=== PATIENT | female | born 1970 | race African-American/Black ===

== ENCOUNTER → 2016-11-28 | Outpatient (CLI) | payer OTHER ==
[~2016-11-28] MED LIST: IOHEXOL 240 MG/ML 50ML VIAL. PO ONE; IOHEXOL 300 MG/ML 100ML VIAL. IV ONE
--- NOTE | 2016-11-28 13:56 | KCIC ---
PROCEDURE CT abdomen pelvis with contrast. HISTORY Abdominal pain, gastric sleeve, bloating, pain with certain foods for a few months, constipation TECHNIQUE After administration of intravenous and oral contrast, CT imaging was performed of the abdomen and pelvis. Multiplanar reconstruction images are submitted. Exposure: One or more of the following individualized dose reduction techniques were utilized for this exam: 1. Automated exposure control. 2. Adjustment of the mA and/or kV according to patient size. 3. Use of iterative reconstruction technique. Contrast: 98 cc Omnipaque 300 COMPARISON None FINDINGS There is no abnormality of the limited visualized lung bases. There is no significant focal abnormality of the liver or spleen. Pancreatic duct is visualized. Gallbladder is present without obvious intraluminal abnormality by CT. There is no adrenal nodularity. Both kidneys enhance without hydronephrosis. There has been gastric sleeve surgery. There is a small sliding hiatal hernia. There is some oral contrast remaining in the visualized distal esophagus. There is small fat containing hernia near the umbilicus on the left, neck 1 centimeter transverse and hernia sac 2.1 cm transverse. Bowel is not significantly dilated. There is retained stool in segments of colon. There is somewhat oblong focus of displacement of the contrast column in a segment of small bowel in the right lower quadrant axial image 57, up to 1.4 cm longitudinal. There is no free air or free fluid. There is mild sigmoid diverticulosis. There has been hysterectomy. There has been posterolateral fusion at L5-S1, also anterior plate and screws at S1 and interbody graft L5-S1. There are some borderline enlarged inguinal lymph nodes bilaterally. IMPRESSION 1. There is retained stool in segments of the colon. There is mild sigmoid diverticulosis. There is oblong focus of displacement of the contrast in the lumen of the small bowel in the right lower quadrant. While polyp difficult to exclude, findings more likely due to ingested material given morphology. 2. There is small ventral fat containing hernia near the umbilicus. 3. There has been gastric sleeve surgery. There is a small sliding hiatal hernia. There is some oral contrast remaining in the distal esophagus. 4. There are some nonspecific borderline enlarged inguinal lymph nodes bilaterally. Electronically signed by: Casper Cooney MD (Nov 28, 2016 13:55:12)
== END | disposition home or self-care (01) ==
LOC: KCIC CT 09:49
PROVIDERS: ATTEND Pediatrics
DX: R10.9 Unspecified abdominal pain (principal); K57.30 Diverticulosis of large intestine without perforation or abscess without bleeding; R59.9 Enlarged lymph nodes, unspecified
CPT/HCPCS: 74177; Q9966; Q9967